=== PATIENT | female | born 1950 | race Caucasian/White ===

== ENCOUNTER 2021-05-18 06:37 | Day surgery (SDC) | payer MEDICARE, BC ==
[~2021-05-18] VITALS: Ht 157.5 cm; Wt 67.6 kg
[2021-05-18] VITALS (10 sets, daily range): BP systolic 132–161; BP diastolic 58–89
[2021-05-18] MEDS ORDERED: diphenhydrAMINE 25mg capsule PO PRN (07:05)
[2021-05-18] MEDS ORDERED: normal saline 1,000 ML IV SCH (07:05)
[2021-05-18] MEDS ORDERED: ROSU40TA22 PO (07:08)
[2021-05-18] MEDS ORDERED: LANS30CA56 PO (07:08)
[2021-05-18 07:24] LABS: BASOPHILS % (AUTO) 0.2 % (0-1); EOSINOPHILS % (AUTO) 0 % (0-6); HEMATOCRIT 41.5 % (35.0-45.0); LYMPHOCYTES % (AUTO) 9.4 % (21-51); MEAN CORPUSCULAR HGB CONC 33.8 g/dL (33.0-36.5); MEAN CORPUSCULAR VOLUME 88.7 FL (78-98); MEAN PLATELET VOLUME 8.9 FL (7.4-10.4); MONOCYTES # (AUTO) 0.3 X10'3 (0-0.9); MONOCYTES % (AUTO) 3.1 % (2-12); NEUTROPHILS # (AUTO) 8.8 X10'3 (1.8-7.7); NEUTROPHILS % (AUTO) 87.3 % (42-75); PLATELET COUNT 231 X10'3 (140-440); RED BLOOD COUNT 4.68 X10'6 (4.20-5.60); RED CELL DISTRIBUTION WIDTH 14.1 % (11.5-14.5); WHITE BLOOD COUNT 10.1 X10'3 (4.5-11.0)
[2021-05-18 07:26] LABS: ANION GAP 9 (8-16); BLOOD UREA NITROGEN 15 MG/DL (7-18); BUN/CREATININE RATIO 17.9 (6.6-38.0); CALCIUM 8.6 MG/DL (8.5-10.1); CHLORIDE 109 MMOL/L (99-107); CREATININE 0.84 MG/DL (0.40-0.90); GLUCOSE 130 MG/DL (70-104); MAGNESIUM 2.3 MG/DL (1.5-2.4); POTASSIUM 3.7 MMOL/L (3.5-5.1); SODIUM 142 MMOL/L (135-145); TOTAL CARBON DIOXIDE 23.8 MMOL/L (24-32); eGFR 67 ML/MIN
[2021-05-18] MEDS ORDERED: nitroGLYCERIN-Tridil 50MG/D5W 250 ML IV ONE (08:45)
[2021-05-18] MEDS ORDERED: heparin 1,000unit/ml 10ml vial 10 ML ONE (08:46)
[2021-05-18] MEDS ORDERED: fentaNYL/PF 50MCG/1 ML 2ML syringe ONE (08:46)
[2021-05-18] MEDS ORDERED: midazolam 1 mg/ML 2ml injection ONE ×2 (08:46→09:40)
[2021-05-18] MEDS ORDERED: LIDOcaine 1% (10mg/ml)w/preservative inj. 20ml MDV ONE (08:46)
[2021-05-18] MEDS ORDERED: iohexol 350MG/ML 100ml bottle IV ONE (08:46)
[2021-05-18] MEDS ORDERED: iohexol 350 MG/ML 50ML vial IV ONE (08:46)
[2021-05-18] MEDS ORDERED: verapamil 2.5 mg/ml inj IV ONE (08:46)
[2021-05-18] MEDS ORDERED: ondansetron/PF 4mg/2ml inj IV PRN (10:30)
[2021-05-18] MEDS ORDERED: proCHLORperazine 10 MG/2 ml inj IV PRN (10:35)
[2021-05-18] MEDS ORDERED: HYDROcodone/acetaminophen 5mg/325mg tablet PO PRN (10:35)
[2021-05-18] MEDS ORDERED: HYDROcodone/acetaminophen 10/325mg tab PO PRN (10:35)
[2021-05-18] MEDS ORDERED: acetaminophen 325mg tablet PO PRN (10:35)
== END 2021-05-18 13:55 | disposition home or self-care (01) ==
LOC: SSTAY O 06:37
PROVIDERS: ATTEND Internal Medicine Cardiovascular Disease
DX: R94.39 Abnormal result of other cardiovascular function study (principal); R07.89 Other chest pain; E78.5 Hyperlipidemia, unspecified; K21.9 Gastro-esophageal reflux disease without esophagitis; Z79.899 Other long term (current) drug therapy; Z72.89 Other problems related to lifestyle; Z88.8 Allergy status to other drugs, medicaments and biological substances; Z81.8 Family history of other mental and behavioral disorders; Z82.3 Family history of stroke; Z82.49 Family history of ischemic heart disease and other diseases of the circulatory system
CPT/HCPCS: 36415; 80048; 83735; 85025; 85610; 93005; 93458; 99152; 99153; C1760; C1769; C1894; J1644; J2250; J3010; J3490; J7030; Q0163; Q9967; A5120; A6258